=== PATIENT | male | born 1950 | race Caucasian/White ===

== ENCOUNTER 2019-03-19 10:43 | Emergency (ER) | payer BC, OTHER ==
[2019-03-19 10:54] VITALS: BP 125/67
[2019-03-19] MEDS ORDERED: LIDOCAINE 5% (700 MG) TRANSDERMAL ADH..PATCH TP ONE (11:19)
[2019-03-19] MEDS ORDERED: HYDROCODONE/ACETAMINOPHEN 5-325 MG TABLET PO ONE (11:19)
--- NOTE | 2019-03-19 11:24 | ER Document Report ---
HPI - HPI Patient complains to provider of: Right sided headache pain Time Seen by Provider: 03/19/19 11:13 Onset: Other - 8 days Onset/Duration: Better Quality of pain: Achy Pain Level: 4 Context: Patient complains of right posterior headache pain for the past 8 days that has improved somewhat although has not resolved. Patient was diagnosed with shingles and placed on antiviral medication. Patient states he has been taking Tylenol Motrin [id number] for his pain without improvement. Patient states that his blood pressure has been elevated for him somewhat yesterday 160/80 although is not elevated today. Patient has been compliant with taking his blood pressure medication. Patient denies any fever. Patient has headache pain in the location of his shingles rash. Associated Symptoms: Headache. denies: Fever, Nausea, Vomiting Exacerbated by: Denies Relieved by: Denies Similar symptoms previously: No Recently seen / treated by doctor: Yes - ROS ROS below otherwise negative: Yes Systems Reviewed and Negative: Yes All other systems reviewed and negative - CONSTITUTIONAL Constitutional: DENIES: Fever, Chills - EENT EENT: DENIES: Sore Throat - NEURO Neurology: REPORTS: Headache. DENIES: Weakness, Vision blurred - CARDIOVASCULAR Cardiovascular: DENIES: Chest pain - RESPIRATORY Respiratory: DENIES: Trouble Breathing, Coughing - GASTROINTESTINAL Gastrointestinal: DENIES: Nausea, Patient vomiting - MUSCULOSKELETAL Musculoskeletal: DENIES: Back Pain - DERM Skin Color: Normal Skin Problems: Rash Past Medical History - General Information source: Patient - Social History Smoking Status: Never Smoker Chew tobacco use (# tins/day): No Frequency of alcohol use: None Drug Abuse: None Occupation: [employer] Lives with: Spouse/Significant other Family History: Reviewed & Not Pertinent Patient has suicidal ideation: No Patient has homicidal ideation: No - Past Medical History Cardiac Medical History: Reports: Hx Hypertension Renal/ Medical History: Denies: Hx Peritoneal Dialysis Past Surgical History: Reports: Hx Vascular Surgery - Carotid endarterectomy Vertical Provider Document - CONSTITUTIONAL Agree With Documented VS: Yes Exam Limitations: No Limitations General Appearance: WD/WN, No Apparent Distress - INFECTION CONTROL TRAVEL OUTSIDE OF THE [place] IN LAST 30 DAYS: No - HEENT HEENT: Atraumatic, Normal ENT Exam, Normocephalic, PERRLA Notes: Patient with crusted lesions to the right occipital scalp and neck area involving the right ear - NECK Neck: Normal Inspection, Supple, Other - No meningismus - RESPIRATORY Respiratory: Breath Sounds Normal, No Respiratory Distress - CARDIOVASCULAR Cardiovascular: Regular Rate, Regular Rhythm - BACK Back: Normal Inspection - MUSCULOSKELETAL/EXTREMETIES Musculoskeletal/Extremeties: GILMA SWEET - NEURO Level of Consciousness: Awake, Alert, Appropriate Motor/Sensory: No Motor Deficit Notes: Cranial nerves II through XII grossly intact, no focal neurologic deficit - DERM Integumentary: Warm, Dry, Rash - Dried skin lesions to right posterior occipital scalp area Course - Re-evaluation Re-evalutation: 03/19/19 11:23 Patient presents with symptoms consistent with neuritis due to herpes zoster. Patient is already taking antiviral medication and is not getting good pain relief with [id number] Tylenol. No meningeal irritation symptoms. No focal neurologic deficit. No concern for meningitis or encephalitis. The patient presents with headache without signs of PSYCHOLOGICAL OPERATIONS SPECIALIST bleed, stroke, infection, or other serious etiology. The patient is neurologically intact. Given the extremely low risk of these diagnoses further testing and evaluation for these possibilities does not appear to be indicated at this time. The patient has been instructed to return if the symptoms worsen or change in any way. - Vital Signs Vital signs: Temp Pulse Resp BP Pulse Ox 98.3 F 64 18 125/67 95 03/19/19 10:53 03/19/19 10:53 03/19/19 10:53 03/19/19 10:53 03/19/19 10:53 Discharge - Discharge Clinical Impression: Neuritis Herpes zoster Qualifiers: Herpes zoster complications: unspecified herpes zoster complication Qualified Code(s): B02.8 - Zoster with other complications Condition: Stable Disposition: HOME, SELF-CARE Instructions: Family Physicians / Practices, Oral Narcotic Medication ([facility]), Shingles ([facility]) Additional Instructions: Return immediately for any new or worsening symptoms Followup with your primary care provider, call tomorrow to make a followup appointment Continue to take your antiviral medication as prescribed Prescriptions: Hydrocodone/Acetaminophen [[place] 5-325 mg Tablet] 1 tab PO Q6 PRN #16 tablet PRN Reason: Lidocaine [Lidoderm 5% (700 mg) Transdermal Patch] 1 patch TP DAILY PRN #10 a dh..patch PRN Reason: Referrals: [facility] [Provider Group] - Follow up as needed
== END 2019-03-19 11:29 | disposition home or self-care (01) ==
LOC: ER 10:43
DX: B02.8 Zoster with other complications (principal); M79.2 Neuralgia and neuritis, unspecified; I10 Essential (primary) hypertension; Z79.899 Other long term (current) drug therapy
CPT/HCPCS: 99283

== ENCOUNTER 2019-04-01 11:07 | Emergency (ER) | payer BC, OTHER ==
--- NOTE | 2019-04-01 12:32 | ER Document Report ---
HPI - HPI Patient complains to provider of: Scalp pain Time Seen by Provider: 04/01/19 11:59 Onset/Duration: Persistent Quality of pain: Achy Pain Level: 3 Context: Patient presents complaining of persistent scalp pain for the past 3 weeks. Patient was diagnosed with shingles and treated with his antiviral medication. Patient states that narcotics have not helped nor has ibuprofen. Associated Symptoms: Headache. denies: Fever Exacerbated by: Denies Relieved by: Denies Similar symptoms previously: No Recently seen / treated by doctor: Yes - ROS ROS below otherwise negative: Yes Systems Reviewed and Negative: Yes All other systems reviewed and negative - CONSTITUTIONAL Constitutional: DENIES: Fever, Chills - NEURO Neurology: REPORTS: Headache. DENIES: Weakness, Vision blurred - GASTROINTESTINAL Gastrointestinal: DENIES: Nausea, Patient vomiting - DERM Skin Color: Normal Skin Problems: Rash Past Medical History - General Information source: Patient - Social History Smoking Status: Never Smoker Frequency of alcohol use: None Drug Abuse: None Lives with: Spouse/Significant other Family History: Reviewed & Not Pertinent Patient has suicidal ideation: No Patient has homicidal ideation: No - Past Medical History Cardiac Medical History: Reports: Hx Hypertension Renal/ Medical History: Denies: Hx Peritoneal Dialysis Past Surgical History: Reports: Hx Vascular Surgery - Carotid endarterectomy Vertical Provider Document - CONSTITUTIONAL Agree With Documented VS: Yes Exam Limitations: No Limitations General Appearance: WD/WN, No Apparent Distress - INFECTION CONTROL TRAVEL OUTSIDE OF THE [place] IN LAST 30 DAYS: No - HEENT HEENT: Atraumatic, Normocephalic Notes: Few scattered crusted lesions to right occipital scalp - NECK Neck: Normal Inspection, Supple - RESPIRATORY Respiratory: Breath Sounds Normal, No Respiratory Distress - CARDIOVASCULAR Cardiovascular: Regular Rate, Regular Rhythm, No Murmur - MUSCULOSKELETAL/EXTREMETIES Musculoskeletal/Extremeties: MAEW - NEURO Level of Consciousness: Awake, Alert, Appropriate Motor/Sensory: No Motor Deficit - DERM Integumentary: Warm, Dry, Rash - Few scattered crusted lesions to right occipital scalp Course - Re-evaluation Re-evalutation: 04/01/19 12:[address] Bentley regarding patient presentation and treatment options. Recommends prescribing either gabapentin or Lyrica to help with pain symptoms at this time. - Vital Signs Vital signs: Temp Pulse Resp BP Pulse Ox 97.5 F 53 L 18 146/68 H 96 04/01/19 11:13 04/01/19 11:13 04/01/19 11:13 04/01/19 11:13 04/01/19 11:13 Discharge - Discharge Clinical Impression: Scalp pain, History of shingles Condition: Stable Disposition: HOME, SELF-CARE Instructions: Shingles ([facility]) Additional Instructions: Return immediately for any new or worsening symptoms Followup with your primary care provider, call tomorrow to make a followup appointment Prescriptions: Gabapentin [Neurontin 300 mg Capsule] 300 mg PO Q12 PRN #30 capsule PRN Reason:
[2019-04-01 12:36] VITALS: BP 148/79
== END 2019-04-01 12:54 | disposition home or self-care (01) ==
LOC: ER 11:07
DX: R51 Headache (principal); R21 Rash and other nonspecific skin eruption; Z79.899 Other long term (current) drug therapy; I10 Essential (primary) hypertension
CPT/HCPCS: 99282